=== PATIENT | female | born 1985 | race Caucasian/White ===

== ENCOUNTER → 2016-05-13 | Outpatient (CLI) | payer OTHER ==
--- NOTE | 2016-05-13 12:27 | US ---
EXAMINATION TYPE: US thyroid st tissue head/neck DATE OF EXAM: 05/13/2016 11:19 AM COMPARISON: 09/26/2012 CLINICAL HISTORY: Thyroid Nodules E04.1. GLAND SIZE: Right Lobe: 5.6 x 1.3 x 1.7 cm Overall Parenchyma: homogenous Left Lobe: 4.4 x 1.4 x 2.3 cm cm Overall Parenchyma: homogeneous Isthmus Thickness: 0.1 cm cm NODULES RIGHT: # of nodules measured on right: 1 1. 0.3 X 0.1 x 0.2 cm hypoechoic mixed nodule at the mid pole with margins; . This nodule is wider than tall and shows no intranodular vascularity. Prior size: 0.3 x 0.2 x 0.2 cm LEFT: # of nodules measured on left: 4 1. 0.2 X 0.2 x 0.3 cm hypoechoic cystic nodule at the upper pole with well-defined margins; . This nodule is wider than tall and shows no intranodular vascularity. Prior size: 0.5 x 0.3 x 0.5 cm 2. 0.5 X 0.3 x 0.6 cm hypoechoic cystic nodule at the mid pole with well-defined margins; . This no dule is wider than tall and shows no intranodular vascularity. Prior size: 0.6 x 0.4 x 0.5 cm 3. 1.0 X 0.6 x 1.0 cm hypoechoic mixed nodule at the mid pole with well-defined margins; . This nod ule is wider than tall and shows no intranodular vascularity. Prior size: 0.4 x 0.2 x 0.4 cm 4. 1.6 X 1.1 x 1.5 cm hypoechoic cystic nodule at the lower pole with well-defined margins; . This nodule is wider than tall and shows no intranodular vascularity. Prior size: 0.4 x 0.6 x 0.7 cm 5. Additional new subcentimeter nodule at lower, anterior ascpect of thyroid ISTHMUS: # of nodules measured in the isthmus: 0 Bilateral neck scanned, no abnormal lymphadenopathy noted. IMPRESSION: Thyroid nodularity as detailed above.
== END | disposition home or self-care (01) ==
LOC: RADUSWWP 11:02
PROVIDERS: ATTEND Family Medicine
DX: E04.2 Nontoxic multinodular goiter (principal)
CPT/HCPCS: 76536

== ENCOUNTER → 2017-06-23 | Outpatient (CLI) | payer OTHER ==
[2017-06-23 12:44] LABS: T4, Free (Free Thyroxine) 1.05 ng/dL (0.78-2.19)
== END | disposition home or self-care (01) ==
LOC: LABWHC1 11:48
PROVIDERS: ATTEND Internal Medicine Endocrinology, Diabetes & Metabolism
DX: E04.2 Nontoxic multinodular goiter (principal)
CPT/HCPCS: 36415; 84439; 84443

== ENCOUNTER → 2017-07-05 | Outpatient (CLI) | payer OTHER ==
--- NOTE | 2017-07-05 12:51 | US ---
EXAMINATION TYPE: US thyroid st tissue head/neck DATE OF EXAM: 07/05/2017 COMPARISON: US 04/2016 CLINICAL HISTORY: E04.2 MULTINODULAR GOITER. follow up on known nodules GLAND SIZE: Right Lobe: 4.3 x 1.3 x 1.7cm Overall Parenchyma: homogenous Left Lobe: 5.6 x 1.3 x 2.2 Overall Parenchyma: homogeneous Isthmus Thickness: 0.1m NODULES RIGHT: # of nodules measured on right: 1 1. 0.3 x 0.2 x 0.3 cm hypoechoic mixed nodule at the mid pole with well-defined margins. This nodul e is wider than tall. Prior size: 0.3 x 0.1x 0.2m LEFT: # of nodules measured on left: 3 1. 1.8 X 1.4 x 1.4 cm hypoechoic cystic nodule at the lower pole with well-defined margins. This n odule is wider than tall Prior size: 1.6 x 1.1 x 1.5 cm 2. 1.3 X 0.9 x 1.0 cm complex cystic nodule at the lower pole with well-defined margins. This nodul e is wider than tall. Prior size: 1.0 x 0.6 x 1.0 cm 3. 0.6 X 0.3 x 0.7 cm hypoechoic cystic nodule at the lower pole with well-defined margins. This no dule is wider than tall. Prior size: 0.5 x 0.3 x 0.6 cm ISTHMUS: # of nodules measured in the isthmus: 0 Bilateral neck scanned, no evidence of lymphadenopathy. IMPRESSION: Given differences in technique there is overall stability of the bilateral thyroid nodules with only slight interval increase in size of the complex cystic and solid nodule at the left lower pole measur ing up to 1.3 cm. Continued surveillance is recommended.
== END | disposition home or self-care (01) ==
LOC: RADUSWWP 11:22
PROVIDERS: ATTEND Internal Medicine Endocrinology, Diabetes & Metabolism
DX: E04.2 Nontoxic multinodular goiter (principal)
CPT/HCPCS: 76536

== ENCOUNTER → 2018-02-08 | Outpatient (CLI) | payer OTHER ==
--- NOTE | 2018-02-08 14:31 | US ---
EXAMINATION TYPE: US thyroid st tissue head/neck DATE OF EXAM: 02/08/2018 COMPARISON: Previous exam 07/05/2017 CLINICAL HISTORY: E04.2 MULTINODULAR GOITER. f/u GLAND SIZE: Right Lobe: 5.3 x 2.0 x 1.2 cm Overall Parenchyma: homogenous Left Lobe: 4.7 x 2.0 x 1.7 cm Overall Parenchyma: heterogeneous Isthmus Thickness: 0.2 cm NODULES RIGHT: # of nodules measured on right: 1 1. 0.3 X 0.2 x 0.3 cm cystic nodule at the mid pole with well-defined margins; present with microca lcification. This nodule is wider than tall and shows no intranodular vascularity. Prior size: 0.3 x 0.2 x 0.3 cm LEFT: # of nodules measured on left: 2, measured largest 2 1. 1.9 X 1.6 x 1.4 cm cystic nodule at the lower pole with well-defined margins. This nodule is wi josé miguel than tall and shows no intranodular vascularity. Prior size: 1.8 x 1.4 x 1.4 cm 2. 1.4 X 0.9 x 1.4 cm cystic nodule at the mid pole with well-defined margins. This nodule is wider than tall and shows no intranodular vascularity. Prior size: 1.3 x 0.9 x 1.0 cm ISTHMUS: # of nodules measured in the isthmus: 0 Bilateral neck scanned, no evidence of lymphadenopathy. IMPRESSION: Subcentimeter colloid cysts present within the right lobe of the gland is stable. Cystic foci within the left lobe show similar appearance and are perhaps more cystic compared to previous exam.
== END | disposition home or self-care (01) ==
LOC: RADUSWWP 09:58
PROVIDERS: ATTEND Internal Medicine Endocrinology, Diabetes & Metabolism
DX: E04.2 Nontoxic multinodular goiter (principal)
CPT/HCPCS: 36415; 76536; 84443

== ENCOUNTER → 2019-10-09 | Outpatient (CLI) | payer OTHER ==
[2019-10-09 14:50] VITALS: BP 154/89; PULSE 112; RESP 18; TEMP 97.7
--- NOTE | 2019-10-09 16:20 | P.HPOB ---
History of Present Illness H&P Date: 10/09/19 Chief Complaint: The patient is here for her routine gynecologic exam. This is a 34-year-old 032 with an LMP of 10/02/2019. The patient is here to establish with this office. Her is status post vasectomy. Her last pelvic examination was about 2 years ago. She states her menstrual periods have been monthly, but seem to be changing recently and are longer and more clotty and heavier than in the past. They previously were lasting 4-5 days with small clots. More recently the periods have been lasting 7 days with heavier clots on days 2 through 4. She typically does not soak through pads. She does notice more clots when she gets up from a sitting position. She also has been experiencing some abdominal bloating which is intermittent and seems to be more associated with drinking carbonated beverages. Review of Systems She is getting about 13 pounds over the past 2 years. She denies respiratory, cardiac, or GI problems. She has noticed some abdominal bloating as in the HPI. Past Medical History Past Medical History: GERD/Reflux Additional Past Medical History / Comment(s): hypoglycemia. PAST SHE[employer] HISTORY: She has no history of STDs. Previous ectopic and previous molar . One spontaneous miscarriage. 2 vaginal deliveries. History of Any Multi-Drug Resistant Organisms: None Reported Past Surgical History: Adenoidectomy, Tonsillectomy Additional Past Surgical History / Comment(s): Left Salpingectomy 2013 for ectopic . D&C for molar . Past Anesthesia/Blood Transfusion Reactions: No Reported Reaction Past Psychological History: No Psychological Hx Reported Smoking Status: Current some day smoker (Smokes socially about 1 pack over 2 weeks.) Past Alcohol Use History: Occasional (About 8 drinks per week.) Past Drug Use History: None Reported Additional History: She has been since 2007. She teaches spinning classes. - Past Family History Mother Family Medical History: Hypertension Additional Family Medical History / Comment(s): Maternal grandfather had lung cancer. Father Family Medical History: Hypertension Additional Family Medical History / Comment(s): Paternal grandmother had COPD. Medications and Allergies Home Medications Medication Instructions Recorded Confirmed Type Multivitamin [Multivitamins Adult 1 each PO DAILY 10/09/19 10/09/19 History Gummies] Allergies Allergy/AdvReac Type Severity Reaction Status Date / Time Penicillins Allergy Rash/Hives Verified 10/09/19 14:46 sulfamethoxazole Allergy Rash/Hives Verified 10/09/19 14:46 [From Bactrim] trimethoprim [From Bactrim] Allergy Rash/Hives Verified 10/09/19 14:46 latex AdvReac Rash/Hives Verified 10/09/19 14:46 Exam Vital Signs Temp Pulse Resp BP Pulse Ox 10/09/19 14:47 97.7 F 112 H 18 154/89 99 Intake and Output 10/09/19 10/09/19 10/09/19 06:59 14:59 22:59 Other: Weight 76.204 kg Repeat blood pressure 148/78. Height 5 feet 6-1/2 inches, weight 168 pounds, BMI 26.7. This is a well-developed well-nourished white female who is alert and oriented times 3 in no acute distress. HEENT: Within normal limits. NECK: Supple without mass or thyromegaly. CHEST AND LUNGS: Clear to auscultation. HEART: Regular rate and rhythm. BREASTS: Are without mass or discharge. AXILLARY EXAM: Negative for adenopathy. BACK: Negative for CVA tenderness. ABDOMEN: Soft, nontender, nondistended, without palpable masses. PELVIC EXAM: Normal external genitalia. Cervix and vagina appear normal. There is no unusual discharge. There is no evidence of prolapse. The uterus is midposition, slightly retroverted, nongravid size and nontender. There are no palpable adnexal masses or tenderness. RECTAL EXAM: negative for mass or tenderness. EXTREMITIES: Nontender. IMPRESSION: 1. 34-year-old female with normal gynecologic exam whose is status post vasectomy. 2. Mild menorrhagia with regular menstrual periods 3. Elevated blood pressure. 4. Intermittent abdominal bloating. PLAN: 1. Pap smear was performed. 2. Self breast awareness was discussed with the patient. 3. Pelvic ultrasound was recommended and the order slip was given to the patient for this. 4. Trial of meclofenamate sodium 100 mg by mouth 3 times a day when necessary for heavy menstrual flow up to 6 days per cycle. The electronic prescription will be sent to [facility] in [facility]. If no significant improvement over 3 months, we can consider endometrial ablation. This was discussed with the patient. She is instructed to call if she is not noticing significant improvement. 5. We have discussed her elevated blood pressure. I have recommended that she check her blood pressure on her own on a regular basis. I have recommended that she get a blood pressure cuff. She is to follow up with her PCP for blood pressure elevations. 6. She will keep a menstrual calendar. 7. She was advised to return in one year for her annual well woman exam and as needed.
--- NOTE | 2019-10-16 17:35 | P.PN ---
Progress Note - Text Progress Note Date: 10/16/19 OUTPATIENT FOLLOW-UP NOTE TEST(S)/RESULTS: Pap smear done on 10/09/2019 was negative. METHOD OF NOTIFICATION: The patient was notified by phone. PATIENT COMMENTS: The patient is happy to hear this result. The patient has an pelvic ultrasound appointment on 10/25/2019. DIAGNOSIS: Negative Pap smear. DISCUSSION: PLAN: Pelvic ultrasound is scheduled for 10/25/2019.
== END | disposition home or self-care (01) ==
LOC: WWCWWP 14:26
PROVIDERS: ATTEND Obstetrics & Gynecology
DX: Z53.9 Procedure and treatment not carried out, unspecified reason (principal)

== ENCOUNTER → 2019-10-25 | Outpatient (CLI) | payer OTHER ==
--- NOTE | 2019-10-25 16:12 | US ---
EXAMINATION TYPE: US pelvic complete DATE OF EXAM: 10/25/2019 COMPARISON: NONE CLINICAL HISTORY: N92.0 Menorrhea ,R14.0 ABD.BLOATING. TECHNIQUE: . Transabdominal sonographic images of the pelvis were acquired. Date of LMP: 3 weeks ago EXAM MEASUREMENTS: Uterus: 4.6 x 4.6 x 5.3 cm Endometrial Stripe: 0.8 cm Right Ovary: 4.7 x 2.7 x 1.9 cm Left Ovary: 1.8 x 1.5 x 1.7 cm 1. Uterus: Anteverted wnl 2. Endometrium: wnl 3. Right Ovary: wnl 4. Left Ovary: wnl 5. Bilateral Adnexa: wnl 6. Posterior cul-de-sac: Small amount of free fluid visualized IMPRESSION: Trace free fluid. Otherwise unremarkable study.
== END | disposition home or self-care (01) ==
LOC: RADUSWWP 14:48
PROVIDERS: ATTEND Obstetrics & Gynecology
DX: N92.0 Excessive and frequent menstruation with regular cycle (principal); R14.0 Abdominal distension (gaseous)
CPT/HCPCS: 76856

== ENCOUNTER → 2019-10-25 | Outpatient (CLI) | payer OTHER ==
[2019-10-25 16:03] LABS: T4, Free (Free Thyroxine) 1.01 ng/dL (0.78-2.19)
--- NOTE | 2019-10-25 16:09 | US ---
EXAMINATION TYPE: US thyroid st tissue head/neck DATE OF EXAM: 10/25/2019 COMPARISON: US 02/08/2018 CLINICAL HISTORY: E04.2 NONTOXIC MULTI GOITER. GLAND SIZE: Right Lobe: 5.3 x 1.5 x 1.3 cm Overall Parenchyma: homogenous Left Lobe: 5.5 x 1.6 x 2.2 cm Overall Parenchyma: homogeneous Isthmus Thickness: 0.3 cm NODULES RIGHT: # of nodules measured on right: 1 1. 0.4 X 0.3 x 0.3 cm hypoechoic cystic nodule at the mid pole with well-defined margins; . This n odule is wider than tall and shows no intranodular vascularity. Prior size: 0.3 x 0.2 x 0.3 cm LEFT: # of nodules measured on left: 2 1. 2.3 X 1.5 x 2.0 cm hypoechoic cystic nodule at the mid pole with well-defined margins; . This n odule is wider than tall and shows no intranodular vascularity. Prior size: 1.9 x 1.4 x 1.6 cm 2. 1.1 X 0.8 x 1.0 cm hypoechoic cystic nodule at the mid pole with well-defined margins; . This no dule is wider than tall and shows no intranodular vascularity. Prior size: 1.4 x 1.4 x 0.9 cm ISTHMUS: # of nodules measured in the isthmus: 0 Bilateral neck scanned, no evidence of lymphadenopathy. Bilateral enlarged thyroid lobes IMPRESSION: The thyroid lobes are enlarged bilaterally with multiple nonspecific nodules essentially unchanged fr om prior examination.
== END | disposition home or self-care (01) ==
LOC: RADUSWWP 14:42
PROVIDERS: ATTEND Internal Medicine Endocrinology, Diabetes & Metabolism
DX: E04.2 Nontoxic multinodular goiter (principal)
CPT/HCPCS: 76536; 84439; 84443

== ENCOUNTER → 2021-07-28 | Outpatient (CLI) | payer OTHER ==
[2021-07-28 14:50] LABS: T4, Free (Free Thyroxine) 1.28 ng/dL (0.800-1.800)
== END | disposition home or self-care (01) ==
LOC: LABWHC1 09:23
PROVIDERS: ATTEND Internal Medicine Endocrinology, Diabetes & Metabolism
DX: E04.2 Nontoxic multinodular goiter (principal)
CPT/HCPCS: 36415; 84439; 84443

== ENCOUNTER → 2021-07-28 | Outpatient (CLI) | payer OTHER ==
--- NOTE | 2021-07-28 10:07 | US ---
EXAMINATION TYPE: US thyroid st tissue head/neck DATE OF EXAM: 07/28/2021 COMPARISON: 10/25/2019 CLINICAL HISTORY: 36-year-old female E04.1. Thyroid nodules TECHNIQUE: Multiple sonographic images of the thyroid gland are obtained. FINDINGS: GLAND SIZE: Right Lobe: 5.6 x 1.3 x 1.9 cm Overall Parenchyma: homogenous Left Lobe: 4.9 x 1.4 x 1.9 cm Overall Parenchyma: homogeneous Isthmus Thickness: .3 cm NODULES RIGHT: # of nodules measured on right: 1 1. .5 X .3 x .5 cm, lower , probable colloid cyst at the lower pole. Prior size: .4 x .3 x .3 cm LEFT: # of nodules measured on left: 1 1. 1.0 X .6 x .8 cm, mid , cystic or almost completely cystic, anechoic nodule, which is wider than tall, with smooth margins, without echogenic foci. 4 mm area of internal nodularity. Prior size: 1.1 x .8 x 1.0 cm ISTHMUS: # of nodules measured in the isthmus: 0 Larger cystic nodule on previous study left inferior pole not seen on today's exam. Bilateral neck scanned, no evidence of lymphadenopathy. IMPRESSION: 1. Borderline to mild thyromegaly. 2. Benign 5 mm colloid cyst on the right. 3. A cystic 1 cm TR3 nodule on the left (previously measuring 1.1 cm). A 4 mm area of internal nodula rity is present within the cyst, unchanged from prior.
== END ==
LOC: RADUSWWP 08:53
PROVIDERS: ATTEND Internal Medicine Endocrinology, Diabetes & Metabolism
DX: E04.2 Nontoxic multinodular goiter (principal)
CPT/HCPCS: 76536

== ENCOUNTER 2022-01-05 09:24 | Day surgery (SDC) | payer OTHER ==
[2022-01-01 15:31] VITALS: BMI 27.3
--- NOTE | 2022-01-04 23:57 | HP ---
HISTORY AND PHYSICAL Surgery on 01/05/2022 HISTORY OF PRESENT ILLNESS: The patient is a 36-year-old 6, para 2-0-4-2, who presents to the office with a relatively longstanding history of increasingly heavy menstrual bleeding, at which time, she actually bleeds through protection on a fairly regular basis. Her has had a vasectomy and she is not interested in hormonal manipulation. She presented requesting NovaSure endometrial ablation. She had an endometrial biopsy done, which demonstrated benign findings. PAST MEDICAL HISTORY: Significant for an ectopic as well as some history of hypoglycemia. PAST SURGICAL HISTORY: She had a D and C in 2012 as well as a left salpingectomy for ectopic . She had her tonsils out in 1991 and she had elective interruption of in 2003, which is the year she also had wisdom teeth extracted. There is no history of anesthetic concerns. OBSTETRICAL HISTORY: 4, para 2-0-4-2 with 2 term vaginal deliveries. She had an ectopic as well as early miscarriage and then an elective interruption of as well. Method of contraception is vasectomy. GYNECOLOGIC HISTORY: Unremarkable with no history of any infections to include STDs. FAMILY HISTORY: Noncontributory. 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 She is an occasional smoker, but denies any other social concerns. CURRENT MEDICATIONS: Include Lysteda 650 mg, 2 tablets t.i.d. for up to 5 days for heavy menstrual bleeding. ALLERGIES: She has an allergy to Bactrim as well as Latex allergy, which is reported as a too prolonged exposure. She additionally has a penicillin allergy as a child. REVIEW OF SYSTEMS: Confined to history of present illness. PHYSICAL EXAMINATION: VITAL SIGNS: Stable. The patient is afebrile. GENERAL: This is a well-developed, well-nourished white female, in no acute distress. HEART: Has a regular rhythm and rate without murmur. LUNGS: Clear to auscultation bilaterally in all jacobo. ABDOMEN: Nondistended, has normoactive bowel sounds, soft, nontender, and without any palpable masses, hepatosplenomegaly, or hernias. EXTREMITIES: Without any cyanosis, clubbing, or edema and are nontender to palpation bilaterally. PELVIC: Demonstrates normal external genitalia and BUS with normal vaginal mucosa and cervix. There is no cervical motion tenderness. Uterus is approximately 4 to 5 weeks in size, mid plane, mobile, nontender, normal in shape. The adnexa are normal and nontender without mass bilaterally. ASSESSMENT AND PLAN: 1. Menorrhagia: We discussed other alternatives, but the patient has declined medical intervention sling instead for surgical approach and more definitive therapy with diagnostic hysteroscopy and NovaSure endometrial ablation. Risks and complications of the procedure have been thoroughly discussed including risk for bleeding, bleeding requiring transfusion, infection, and injury to local structures to specifically include uterine perforation, Asherman syndrome, and potential hematometra. She has understood all this and agreed to proceed. We are scheduled for the procedure as outlined above on the morning of January 05, 2022. MMODL / IJN: [id number] /
[~2022-01-05 09:24] MED LIST: DEXAMETHASONE SOD PHOSPHATE 4 MG/ML 1 ML VIAL IV ONE; HYDROmorphone 0.5 MG/0.5 ML SYRINGE IVP PRN; LACTATED RINGERS 1,000 ML IV SCH; ONDANSETRON 4 MG/2 ML VIAL IVP ONE; Pre Op ABX Message 1 EACH MISC MISCELLANE ONE
[2022-01-05] MEDS: MIDAZOLAM 2 MG/2 ML VIAL IV ONE ×2 (10:10→10:15)
[2022-01-05 10:17] VITALS: RESP 16; TEMP 97.7
[2022-01-05 10:19] LABS: Glucose,Whole Blood 98 mg/dL (70-110)
[2022-01-05] MEDS ORDERED: LIDOCAINE 2% INJ 20 MG/ML (2 ML VIAL) ONE (10:40)
[2022-01-05] MEDS ORDERED: KETOROLAC 15 MG/ML 1 ML VIAL ONE (10:40)
[2022-01-05] MEDS ORDERED: MIDAZOLAM 2 MG/2 ML VIAL ONE (10:40)
[2022-01-05] MEDS ORDERED: PROPOFOL 10 MG/ML 20 ML VIAL IV ONE (10:40)
[2022-01-05] MEDS ORDERED: fentaNYL (PF) 50 MCG/ML 2 ML AMP ONE (10:40)
[2022-01-05] MEDS ORDERED: ONDANSETRON 4 MG/2 ML VIAL IVP PRN (11:15)
[2022-01-05] MEDS ORDERED: SIMETHICONE 80 MG CHEWABLE PO PRN (11:15)
[2022-01-05] MEDS ORDERED: Acetaminophen-Codeine 300-30mg TAB PO PRN ×2 (11:15)
[2022-01-05] MEDS ORDERED: LACTATED RINGERS 1,000 ML IV SCH (11:15)
[2022-01-05] MEDS ORDERED: KETOROLAC 15 MG/ML 1 ML VIAL IVP PRN (11:15)
[2022-01-05] MEDS ORDERED: IBUPROFEN 600 MG TAB PO PRN (11:15)
[2022-01-05] MEDS ORDERED: METOCLOPRAMIDE 5 MG/ML 2 ML VIAL IVP PRN (11:15)
--- NOTE | 2022-01-05 11:20 | P.OP ---
Date of Procedure: 01/05/22 Preoperative Diagnosis: #1. Menorrhagia Postoperative Diagnosis: Same Procedure(s) Performed: #1. Diagnostic hysteroscopy #2. NovaSure endometrial ablation Anesthesia: other (Gen. by LMA) Surgeon: Desmond Brand Estimated Blood Loss (ml): 5 IV fluids (ml): 300 Urine output (ml): 40 Pathology: none sent Condition: stable Disposition: PACU Operative Findings: Preoperative pelvic examination and should a roughly 5-6 week midplane mobile normal shaped uterus with normal adnexa bilaterally. Intraoperatively, there was a moderate amount of shaggy endometrium noted throughout and visualization was somewhat difficult secondary to blood in the matrix. The bilateral tubal ostia were seen. The settings for the NovaSure tool where a length of 6.0, a width of 4.7 cm for a total power 155 W. Total run time was 56 seconds after which time the base unit read "procedure complete." The postprocedural result appeared to be excellent. The patient is a potential candidate for vaginal instructed he should become necessary in the future. Description of Procedure: The patient was prepped and draped in usual fashion after general anesthesia was administered by the anesthesiologist. A weighted speculum was placed and the bladder drained of approximately 40 mL of clear woo urine. The anterior lip of the cervix was grasped with a single-tooth tenaculum and uterus sounded to 10 cm with a cervical length of approximate 4 cm. Serial dilation was carried out to admit the diagnostic hysteroscope which was placed in the fundus and the cavity distended with normal saline. The findings were as noted above with some generalized shaggy endometrium and the bilateral tubal ostia were seen. This was H was somewhat difficult from a more global perspective secondary to blood floating in the normal saline obscuring vision. After adequate hysteroscopy had been carried out, the scope was removed and set aside in the NovaSure tool placed into the endometrial cavity, opened, and seated well. The settings were as noted above with a length of 6.0, a width of 4.7 cm for a total power 155 W. The cavity check was passed without difficulty and the tool was enabled. The run was started and, after a total run time of 56 seconds, the base unit read "procedure complete." The tool was removed and discarded. The diagnostic hysteroscope was replaced and the endometrial cavity and the result appeared to be excellent as noted above. All instrumentation was removed. There is no significant ongoing bleeding from either the cervix or the tenaculum sites. Estimated blood loss for the case was less than 5 mL. There were no complications. All sponge, instrument, and needle counts were correct. The patient tolerated the procedure well and proceeded to the recovery room in stable condition.
[2022-01-05 12:14] VITALS: BP 133/74; PULSE 68
== END 2022-01-05 12:27 | disposition home or self-care (01) ==
LOC: OR 09:24
PROVIDERS: ATTEND Obstetrics & Gynecology
DX: N92.0 Excessive and frequent menstruation with regular cycle (principal); K21.9 Gastro-esophageal reflux disease without esophagitis; F17.200 Nicotine dependence, unspecified, uncomplicated; Z98.890 Other specified postprocedural states; Z90.721 Acquired absence of ovaries, unilateral; Z88.1 Allergy status to other antibiotic agents; Z88.0 Allergy status to penicillin; Z91.040 Latex allergy status; Z79.3 Long term (current) use of hormonal contraceptives
CPT/HCPCS: 58563; 81025; J2250; J1100; J2405; J3010; J1885; J2704; J2001

== ENCOUNTER → 2024-02-08 | Outpatient (CLI) | payer OTHER ==
--- NOTE | 2024-02-08 12:37 | US ---
EXAMINATION TYPE: US thyroid st tissue head/neck DATE OF EXAM: 02/08/2024 COMPARISON: Multiple thyroid THE MOST RECENT 07/28/2021 CLINICAL INDICATION: Female, 38 years old with history of E04.2 MULTINODULAR GOITER; f/u TECHNIQUE: Grayscale and color Doppler imaging of the thyroid gland. FINDINGS: GLAND SIZE: Right Lobe: 5.7x1.4x1.5 cm Overall Parenchyma: homogeneous Left Lobe: 5.4x1.5x1.9 cm Overall Parenchyma: homogeneous Isthmus Thickness: 0.2 cm NODULES RIGHT: # of nodules measured on right: 0 LEFT: # of nodules measured on left: 1 1. 0.5 X 0.5 x 0.5 cm, lower medial, mixed cystic and solid, hypoechoic nodule, which is wider than tall, with ill-defined margins, without echogenic foci. TR 3. ISTHMUS: # of nodules measured in the isthmus: 0 Bilateral neck scanned, no evidence of lymphadenopathy. Several subcentimeter colloid cysts. T3 nodule on prior study not appreciated on today's exam IMPRESSION: 1. Enlarged multinodular thyroid gland redemonstrated. 2. Left thyroid lobe 5 mm TR 3 nodule. 3. Previously seen 1 cm left thyroid lobe TR 3 nodule is not visualized on today's exam. 4. Redemonstration of subcentimeter colloid cysts. ACR TI-RADS LEVEL: TR-RADS 3: Follow if > 1.5 cm, FNA if > 2.5 cm *Highest TI-RADS level nodule reported [facility], , 02/08/2024 12:35 PM
== END | disposition home or self-care (01) ==
LOC: RADUSWWP 11:32
PROVIDERS: ATTEND Internal Medicine Endocrinology, Diabetes & Metabolism
DX: E04.2 Nontoxic multinodular goiter (principal)
CPT/HCPCS: 76536

== ENCOUNTER → 2024-04-03 | Outpatient (CLI) | payer OTHER ==
--- NOTE | 2024-04-05 08:33 | MM ---
Reason for Exam: Screening (asymptomatic). Baseline mammogram. Patient History: Menarche at age 11. First Full-Term at age 25. Patient has history of breast feeding. Risk Values: Breana 5 year model risk: 0.6%. NCI Lifetime model risk: 11.1%. Prior Study Comparison: Patient's first Mammogram. Tissue Density: The breasts are heterogeneously dense, which may obscure small masses. Findings: Analyzed By CAD. Asymmetric fibroglandular density upper outer left breast. Underlying mass is not excluded and additional views as well as ultrasound advised. No suspicious mitral calcifications within either breast. No right breast mass is seen with certainty at this time. Overall Assessment: Incomplete: need additional imaging evaluation, BI-RAD 0 Management: Diagnostic Mammogram of the left breast. . Patient should continue monthly self-breast exams. A clinical breast exam by your physician is recommended on an annual basis. This exam should not preclude additional follow-up of suspicious palpable abnormalities. Note on Breana scores and lifetime risk: 1. A Breana score greater than 3% is considered moderate risk. If this is the case, consider specialist referral to assess eligibility for a risk reducing agent. 2. If overall lifetime risk for the development of breast cancer is 20% or higher, the patient may qualify for future screening with alternating mammogram and breast MRI. [facility], , 04/05/2024 8:30 AM. Electronically signed and approved by: Keyshawn Rivas M.D. Radiologis
== END | disposition home or self-care (01) ==
LOC: RADMAMWWP 10:15
PROVIDERS: ATTEND Obstetrics & Gynecology
DX: Z12.31 Encounter for screening mammogram for malignant neoplasm of breast (principal); R92.333 Mammographic heterogeneous density, bilateral breasts
CPT/HCPCS: 77067

== ENCOUNTER → 2024-04-27 | Outpatient (CLI) | payer OTHER ==
--- NOTE | 2024-04-27 10:32 | MM ---
Reason for Exam: Additional evaluation requested from abnormal screening. Last screening mammogram was performed less than 1 month ago. Patient History: Menarche at age 11. First Full-Term at age 25. Patient has history of breast feeding. Risk Values: Breana 5 year model risk: 0.6%. NCI Lifetime model risk: 11.1%. Prior Study Comparison: 04/03/2024 Bilateral MG screening mammo w CAD, [facility]. Tissue Density: Left: The breasts are heterogeneously dense, which may obscure small masses. Findings: Analyzed By CAD. Asymmetry left breast lateral aspect 5.2 cm from the nipple posterior nipple line on MLO view measuring 8 mm. On lateral view 6 cm from the nipple at 3:00. Overall Assessment: Incomplete: need additional imaging evaluation, BI-RAD 0 Management: Diagnostic Breast Ultrasound of the left breast. Results were given to the patient verbally at the time of exam. Patient should continue monthly self-breast exams. A clinical breast exam by your physician is recommended on an annual basis. This exam should not preclude additional follow-up of suspicious palpable abnormalities. Note on Breana scores and lifetime risk: 1. A Breana score greater than 3% is considered moderate risk. If this is the case, consider specialist referral to assess eligibility for a risk reducing agent. 2. If overall lifetime risk for the development of breast cancer is 20% or higher, the patient may qualify for future screening with alternating mammogram and breast MRI. [facility], , 04/27/2024 10:29 AM. Electronically signed and approved by: Geovany Beltran DO
--- NOTE | 2024-04-27 11:00 | USB ---
Reason for Exam: Additional evaluation requested from abnormal screening. Patient History: Menarche at age 11. First Full-Term at age 25. Patient has history of breast feeding. Risk Values: Breana 5 year model risk: 0.6%. NCI Lifetime model risk: 11.1%. Technique: Method: Targeted. Prior Study Comparison: 04/03/2024 Bilateral MG screening mammo w CAD, [facility]. Findings: The lateral section of the breast of the left breast, the axilla of the left breast and the retroareolar of the left breast were scanned. Technique utilized:US breast workup limited LT Image; Ultrasound imaging of: Area of concern, retroareolar region and axilla. No evidence for organizing fluid collection or mass. No ultrasound findings for mammographic correlate. Short-term follow-up with mammography recommended for stability. Overall Assessment: Probably benign, BI-RAD 3 Management: Diagnostic Mammogram of the left breast in 6 months. A clinical breast exam by your physician is recommended on an annual basis and results should be correlated with mammographic findings. This exam should not preclude additional follow-up of suspicious palpable abnormalities. Results were given to the patient verbally at the time of exam. [facility], , 04/27/2024 10:51 AM. Electronically signed and approved by: Geovany Beltran DO
== END | disposition home or self-care (01) ==
LOC: RADMAMWWP 09:59
PROVIDERS: ATTEND Obstetrics & Gynecology
DX: R92.8 Other abnormal and inconclusive findings on diagnostic imaging of breast (principal); R92.333 Mammographic heterogeneous density, bilateral breasts
CPT/HCPCS: 77061; 77065